=== PATIENT | female | born 1935 | race Caucasian/White ===

== ENCOUNTER 2016-07-13 08:23 | Inpatient (IN) | payer MEDICARE, BC ==
[~2016-07-13] VITALS: Ht 157.5 cm; Wt 80.0 kg
--- NOTE | 2016-07-15 10:33 | MH ---
cc: Laine PAIGE M.D. DATE OF ADMISSION 07/21/2016 ADMISSION DIAGNOSIS Osteoarthritic degeneration right knee now being admitted for right total knee arthroplasty HISTORY AND PHYSICAL This pleasant 81-year female is being admitted today for a right total knee arthroplasty due to severe painful osteoarthritic degeneration right knee. OTHER PAST HISTORY The patient has no medical problems, takes no medications. PAST SURGICAL HISTORY Include: 1. Tonsillectomy 2. Hysterectomy 3. A left total knee REVIEW OF SYSTEMS Noncontributory FAMILY HISTORY Noncontributory SOCIAL HISTORY She does not smoke or drink. ALLERGIES SHE HAS ALLERGIES TO SULFA, ZITHROMAX AND AVELOX. PHYSICAL EXAMINATION We find an 81-year female well-developed, well-nourished oriented x3 complaining of pain in her right knee. VITAL SIGNS: Blood pressure 128/84, pulse 62 and regular, respirations 18, temperature 97.4, pulse oximetry 96% on room air. HEENT: Eyes PERRL, EOMI. Ears, nose, mouth clear. NECK: Supple. LUNGS: Clear. HEART: Regular rate. ABDOMEN: Soft, positive bowel sounds, nontender. EXTREMITIES: The right knee has crepitance on range of motion. She lacks 10 degrees short of full extension, as general valgus deformity and is neurovascularly intact to her toes. IMPRESSION AT THIS TIME Severe painful osteoarthritic degeneration right knee with valgus deformity. PLAN Admission for right total knee arthroplasty today. The patient was given a prescription for postoperative pain, anticoagulation control in the office and plans on going home after a three-day stay in the hospital. She understands the use Hibiclens scrub and Bactroban preoperatively. JMD JOSTIN Shaw/MAGY /10:23 AM /10:27 AM
[2016-07-21] MEDS ORDERED: VANCOMYCIN HCL 1000 MG VIAL ONE (07:06)
[2016-07-21] MEDS ORDERED: SODIUM CHLOR 0.9% 250 ML INJ 250 ML ONE (07:06)
[2016-07-21 07:07] VITALS: BP 146/79; PULSE 72; RESP 18; TEMP 98.2; O2SAT 97
[2016-07-21] MEDS: BUPIVACAINE LIPOSO PF 1.3% INJ 20 ML, BUPIVACAINE PF 0.25% INJ 20 ML in SODIUM CHLORIDE... P-ARTICULR SCH ×2 (07:15→09:56)
[2016-07-21] MEDS: CHLORHEXIDINE GLUCONATE 4% SOLN 120 ML BTL TOP SCH (07:15)
[2016-07-21] MEDS ORDERED: ceFAZolin 2 GM PREMIX 50 ML IV SCH (07:15)
[2016-07-21] MEDS: TRANEXAMIC ACID IV SCH ×2 (07:15→08:25)
[2016-07-21] MEDS ORDERED: ROPIVACAINE PERI-ARTICULAR INJECTION. PERIART SCH ×5 (07:15)
[2016-07-21] MEDS ORDERED: VANCOMYCIN 1000 MG/NS 250 ML (for <70 kg) IV SCH ×2 (07:15)
[2016-07-21] MEDS: SODIUM CHLORIDE 0.9% IV SCH ×2 (07:15→08:25)
[2016-07-21] MEDS ORDERED: SODIUM CHLORID 0.9% 500 ML IV SCH (07:30)
[2016-07-21] MEDS ORDERED: METOPROLOL TARTRATE 25 MG TAB PO PRN (07:30)
[2016-07-21] MEDS ORDERED: INSULIN HUMAN REGULAR 1,000 UNITS/10 ML VIAL SQ PRN (07:30)
[2016-07-21] MEDS ORDERED: LACTATED RINGER'S 1000 ML IV SCH (07:30)
[2016-07-21] MEDS ORDERED: MIDAZOLAM HCL 2 MG/2 ML VIAL ONE (07:34)
[2016-07-21] MEDS ORDERED: ACETAMINOPHEN 325 MG TAB PO PRN (08:15)
[2016-07-21] MEDS ORDERED: NALOXONE HCL 0.4 MG/ML AMP IV PRN ×2 (08:15)
[2016-07-21] MEDS ORDERED: MORPHINE SULFATE 30 MG/30 ML PCA IV SCH (08:15)
[2016-07-21] MEDS ORDERED: Post-op Orders (for Pharmacy) MISC XX ONE (08:15)
[2016-07-21] MEDS ORDERED: SODIUM CHLORIDE 0.9% FLUSH 5 ML FLUSH IVF PRN (08:15)
--- NOTE | 2016-07-21 08:18 | HHI.FF ---
Face to Face Verification Diagnosis: (1) Status post total right knee replacement Physical Therapy Gait training Knee: Total knee, Protocol: Right, Full weight bearing Canvas Knee Splint: When in bed & 2 pillows btw thighs Nursing RN: 3 days/week x 2 weeks Nursing: True teaching, Dressing changes Dressing Changes: Daily dressing change, 4x4s, Gauze, Paper tape I have seen patient Pam Martinez on 07/21/16. My clinical findings support the need for the requested home health care services because: Limited ability to care for self High risk of falls I certify that my clinical findings support that this patient is homebound because: Unsteady gait/balance Laine Ferrell MD Jul 21, 2016 08:18
[2016-07-21] MEDS ORDERED: CPMMACHINE (08:20)
[2016-07-21] MEDS ORDERED: MISC-163 (08:20)
[2016-07-21] MEDS ORDERED: WALKER WHEELS/F1 MIS (08:20)
[2016-07-21] MEDS ORDERED: ceFAZolin INJ 1,000 MG VIAL XX ONE (08:49)
[2016-07-21] MEDS ORDERED: ONDANSETRON HCL 4 MG/2 ML VIAL IVP PRN (09:00)
[2016-07-21] MEDS ORDERED: diphenhydrAMINE HCL 50 MG/ML VIAL IV PRN (09:00)
[2016-07-21] MEDS ORDERED: TEMAZEPAM 15 MG CAP PO PRN (10:00)
[2016-07-21] MEDS ORDERED: fentaNYL CITRATE 250 MCG/5 ML AMP ONE (10:58)
[2016-07-21] MEDS ORDERED: TRANEXAMIC ACID IV SCH ×2 (11:00→12:00)
[2016-07-21] MEDS ORDERED: SODIUM CHLORIDE 0.9% IV SCH ×2 (11:00→12:00)
[2016-07-21] MEDS ORDERED: BUPIVACAINE HCL PF 0.5% 30 ML VIAL NB ONE (11:03)
[2016-07-21] MEDS ORDERED: *morphine SULFATE 8 MG/ML PERIprocedure ONLY ONE ×2 (11:11→11:17)
[2016-07-21] MEDS ORDERED: DO NOT ADM ANY ANTICOAGULANT DRUGS XX PRN (11:15)
[2016-07-21] MEDS: LACTATED RINGER'S 1000 ML INJ 1,000 ML IV SCH ×2 (11:51→21:04)
[2016-07-21] MEDS: SODIUM CHLORIDE 0.9% FLUSH 5 ML FLUSH IVF SCH ×2 (11:51→21:00)
--- NOTE | 2016-07-21 12:14 | RADRPT ---
EXAM DATE/TIME: 07/21/2016 10:47 [facility] COMPARISON: No previous studies available for comparison. INDICATIONS : Post op right knee surgery. MEDICAL HISTORY : Osteoarthritis. SURGICAL HISTORY : None. ENCOUNTER: Initial ACUITY: 1 day PAIN SCORE: 0/10 LOCATION: Right Knee. FINDINGS: The patient is status post right total knee replacement with prosthesis in good position. No fracture or dislocation is noted. CONCLUSION: Status post right total knee replacement with prosthesis in good position. Dario Champagne MD on July 21, 2016 at 12:12 Board Certified Radiologist. This report was verified electronically.
[2016-07-21] MEDS ORDERED: ONDANSETRON HCL 4 MG/2 ML VIAL IV PUSH ONE (13:07)
[2016-07-21] MEDS ORDERED: ePHEDrine/NS 25 MG/5 ML SYR IV ONE (13:07)
[2016-07-21] MEDS ORDERED: PROPOFOL 200 MG/20 ML AMP IV ONE (13:07)
[2016-07-21] MEDS ORDERED: LACTATED RINGER'S 1000 ML INJ 1,000 ML IV ONE (13:07)
[2016-07-21] MEDS ORDERED: NEOSTIGMINE 3 MG/3 ML SYR IV ONE (13:07)
[2016-07-21] MEDS: PCA - TOTAL MG MORPHINE DELIVERED PER SHIFT SCH ×2 (14:00→22:00)
[2016-07-21 16:03] VITALS: BP 127/62; PULSE 68; RESP 18; TEMP 95.5; O2SAT 97
[2016-07-21 19:30] VITALS: BP 140/65; PULSE 80; RESP 17; TEMP 95.9; O2SAT 95
[2016-07-21] MEDS: ACETAMINOPHEN/HYDROcodone 325 MG/7.5 MG TAB PO PRN (21:02)
[2016-07-22] VITALS: BP 121/62; PULSE 75; RESP 18; TEMP 97.7; O2SAT 94
[2016-07-22] MEDS: ACETAMINOPHEN/HYDROcodone 325 MG/7.5 MG TAB PO PRN ×6 (02:05→23:37)
[2016-07-22] MEDS: LACTATED RINGER'S 1000 ML INJ 1,000 ML IV SCH ×2 (03:13→21:39)
[2016-07-22 04:00] VITALS: BP 105/51; PULSE 76; RESP 18; TEMP 97.5; O2SAT 94
[2016-07-22] MEDS: PCA - TOTAL MG MORPHINE DELIVERED PER SHIFT SCH (06:00)
--- NOTE | 2016-07-22 06:19 | MP ---
cc: Laine FERRELL M.D. DATE OF SURGERY 07/21/2016 PREOPERATIVE DIAGNOSIS Osteoarthritic degeneration right knee. POSTOPERATIVE DIAGNOSIS Osteoarthritic degeneration right knee. SURGERY PERFORMED Right total knee arthroplasty using Consensus Knee System with the pre-made cutting jigs sizes - 3 femur, 0 tibia, size 1 patella and a size 12 insert. No cement utilized. SURGEON Laine Ferrell MD BENDING PRESS OPERATOR DAIJA Jin ANESTHESIA General intubation and block. PROCEDURE After successful induction of anesthesia, the patient is placed on the operating room table in the supine position. The knee is prepped and draped in the usual manner. A tourniquet is inflated at the upper thigh and set to 300 mmHg pressure after exsanguination of the lower extremity. A longitudinal incision is made extending from 3 inches proximal to the superior pole of the patella, across the patella in longitudinal fashion, and down past the insertion of the tibial tubercle into the proximal tibia. The incision is carried down through subcutaneous tissue along the medial aspect of the patella and retinaculum, down through the capsule to expose the knee joint. The patella and patellar tendon are freed up enough to allow the patella to be inverted and retracted off the lateral side of the knee joint. The knee joint is left exposed. Small osteophytes are removed. All soft tissue is removed to allow proper position of the femoral and tibial cutting jig guide. The first femoral jig is then inserted along the distal end of the femur after first measuring to decide whether this is a small, medium, or large component. The notch is then drilled and the tibial cutting guide inserted into the femoral cutting guide, along with the ankle brace to allow for proper measurement of the tibial cutting surface that needed to be resected. Pins are inserted into the tibial cutting jig and femoral cutting jig to hold them in place. An oscillating saw is then used to resect the surface of the tibia. The surface of the tibia is then completely removed using sharp and blunt dissection. The anterior and posterior cuts of the femur are then made as well using an oscillating saw through the cutting guide. All guides are then removed and the varus/valgus angulation cutting guide applied to the femur for proper measurement of the proper amount of valgus. The anterior cutting guide for the femur is then inserted at the anterior femoral cuts made. Next, the first block trial is inserted into the femur to allow for proper condyle drill holes to be made which are then made followed by removal of the bone between the condyles using an oscillating saw as well as the bone removed at the most posterior surface of the condyle. After this, this guide is removed and the chamfer cuts made using the chamfer cutting guide from both anterior and posterior. Next, the femoral trial is then inserted, the tibial surface reflected anterior to expose the tibial surface and a tibial stem guide is inserted after first measuring for a standard, standard plus, large, or large plus surface to be used. After the stem is impacted the trial tibial surface is applied followed by the trial meniscal components. After full range of motion is found with the appropriate length meniscal components varying the patella is prepared by resecting the posterior aspect of the patella using an oscillating saw, inserting a trial. The trial is then removed and the cruciate cutting guide applied using the bur to cut the cruciate cuts. After cruciate cuts are made all trials are removed. The wound is irrigated copiously with antibiotic solution and Water Pik and the actual components inserted into place using Consensus Knee System with the pre-made cutting jigs sizes - 3 femur, 0 tibia, size 1 patella and a size 12 insert. No cement utilized.. The components are found to have full range of motion with no instability, the tourniquet is deflated, total tourniquet time being 54 minutes at 300 mmHg pressure. Meticulous hemostasis achieved. 120 cc of Exparel with Marcaine injected around the knee joint for extra pain control. The deep fascia approximated with running #2 Quill, the subcutaneous tissue approximated using interrupted and running 2-0 and 3-0 Monocryl sutures, Steri-Strips, sterile dressing and knee immobilizer. No drain utilized. ESTIMATED BLOOD LOSS: 100 cc. COUNTS: Sponge and suture counts were correct. The patient tolerated the procedure well and left the Operating Room in satisfactory condition. J. MD JOSTIN Bianchi/VIVEK /10:24 AM /6:02 AM
[2016-07-22 07:03] LABS: HEMATOCRIT 33.2 % (35.0-46.0); REVIEW FLAG FINAL
[2016-07-22] MEDS: CHLORHEXIDINE GLUCONATE 4% SOLN 120 ML BTL TOP SCH (07:15)
[2016-07-22 08:00] VITALS: BP 106/57; PULSE 74; RESP 18; TEMP 95.5; O2SAT 95
[2016-07-22] MEDS: SODIUM CHLORIDE 0.9% FLUSH 5 ML FLUSH IVF SCH ×2 (08:37→20:46)
--- NOTE | 2016-07-22 10:01 | PD.ORT.PN ---
Subjective Subjective Remarks Patient comfortable today. No complaints of pain. She states she is hungry. Objective Vitals Vital Signs Date Time Temp Pulse Resp B/P Pulse Ox O2 Delivery O2 Flow Rate FiO2 07/22/16 08:00 95.5 74 18 106/57 95 07/22/16 06:00 18 07/22/16 04:00 97.5 76 18 105/51 94 07/22/16 00:00 97.7 75 18 121/62 94 07/21/16 22:01 21 07/21/16 22:00 18 07/21/16 19:30 95.9 80 17 140/65 95 07/21/16 16:03 95.5 68 18 127/62 97 07/21/16 15:00 97.4 65 16 131/69 98 Nasal Cannula 2 07/21/16 14:00 71 16 131/69 98 Nasal Cannula 2 07/21/16 13:00 64 15 121/64 98 Nasal Cannula 2 07/21/16 11:40 97.5 65 14 136/69 97 Nasal Cannula 2 07/21/16 11:30 66 13 149/72 96 Nasal Cannula 2 07/21/16 11:15 68 14 138/72 99 Nasal Cannula 2 07/21/16 11:00 82 14 157/70 99 Nasal Cannula 2 07/21/16 11:00 14 07/21/16 10:49 97.6 85 14 146/62 96 Nasal Cannula 2 I/O 07/21/16 07/21/16 07/21/16 07/22/16 07/22/16 07/22/16 07:00 15:00 23:00 07:00 15:00 23:00 Intake Total 1457 ml 240 ml 2784 ml Output Total 100 ml Balance 1357 ml 240 ml 2784 ml Intake Oral 0 ml 240 ml 220 ml IV Total 307 ml 2564 ml Other 1150 ml Output Urine Total 0 ml Estimated Blood Loss 100 ml # Voids 0 1 1 # Bowel Movements 0 0 Result Diagram: 07/22/16 0623 Objective Remarks Patient is currently lying in bed. The dressing is dry and intact. She is moving her toes well. Circulation is intact to her toes. She has negative Homans sign with tenderness. Assessment & Plan Ortho Post Op Day #: 1 Problem List: Assessment and Plan DC LOCKS TENDER today. Begin out of bed with physical therapy weight-bear to tolerance with a walker. Daily wound care. Laine Ferrell MD Jul 22, 2016 10:01
[2016-07-22] MEDS: ENOXAPARIN SODIUM 30 MG/0.3 ML SYRINGE SQ SCH ×2 (10:29→21:39)
[2016-07-22 12:00] VITALS: BP 116/55; PULSE 92; RESP 18; TEMP 97; O2SAT 93
[2016-07-22 16:20] VITALS: BP 131/64; PULSE 86; RESP 16; TEMP 95.6; O2SAT 95
[2016-07-22 19:30] VITALS: BP 117/51; PULSE 85; RESP 16; TEMP 96.7; O2SAT 95
[2016-07-22] MEDS: DOCUSATE SODIUM 100 MG CAP PO SCH (20:46)
[2016-07-22] MEDS: MULTIVITAMINS/MINERALS THERAPEUTIC TAB PO SCH (20:46)
[2016-07-23 00:09] VITALS: BP 118/54; PULSE 87; RESP 16; TEMP 97.4; O2SAT 95
[2016-07-23 04:00] VITALS: BP 118/64; PULSE 85; RESP 16; TEMP 97.8; O2SAT 96
[2016-07-23] MEDS: CHLORHEXIDINE GLUCONATE 4% SOLN 120 ML BTL TOP SCH (05:21)
[2016-07-23 06:53] LABS: HEMATOCRIT 32.1 % (35.0-46.0); REVIEW FLAG FINAL
[2016-07-23 08:00] VITALS: BP 118/62; PULSE 79; RESP 18; TEMP 97; O2SAT 96
[2016-07-23] MEDS: MULTIVITAMINS/MINERALS THERAPEUTIC TAB PO SCH ×2 (09:32→22:02)
[2016-07-23] MEDS: ENOXAPARIN SODIUM 30 MG/0.3 ML SYRINGE SQ SCH ×2 (09:32→22:02)
[2016-07-23] MEDS: SODIUM CHLORIDE 0.9% FLUSH 5 ML FLUSH IVF SCH ×2 (09:32→22:03)
[2016-07-23] MEDS: DOCUSATE SODIUM 100 MG CAP PO SCH ×2 (09:32→22:02)
[2016-07-23] MEDS: LACTATED RINGER'S 1000 ML INJ 1,000 ML IV SCH (09:33)
[2016-07-23] MEDS: ACETAMINOPHEN/HYDROcodone 325 MG/7.5 MG TAB PO PRN ×3 (09:34→22:02)
[2016-07-23] MEDS ORDERED: BACITRACIN OINT 0.9 GM PKT TOP PRN (10:15)
--- NOTE | 2016-07-23 10:37 | PD.ORT.PN ---
Subjective Subjective Remarks Patient comfortable today. No complaints of pain. Objective Vitals Vital Signs Date Time Temp Pulse Resp B/P Pulse Ox O2 Delivery O2 Flow Rate FiO2 07/23/16 08:00 97.0 79 18 118/62 96 07/23/16 04:00 97.8 85 16 118/64 96 07/23/16 00:35 20 07/23/16 00:09 97.4 87 16 118/54 95 07/22/16 21:04 21 07/22/16 19:30 96.7 85 16 117/51 95 07/22/16 19:30 96.7 85 16 117/51 95 07/22/16 16:20 95.6 86 16 131/64 95 07/22/16 12:00 97.0 92 18 116/55 93 I/O 07/22/16 07/22/16 07/22/16 07/23/16 07/23/16 07/23/16 07:00 15:00 23:00 07:00 15:00 23:00 Intake Total 2784 ml 600 ml 480 ml 480 ml Balance 2784 ml 600 ml 480 ml 480 ml Intake Oral 220 ml 600 ml 480 ml 480 ml IV Total 2564 ml 0 ml # Voids 1 3 2 1 # Bowel Movements 0 0 Result Diagram: 07/23/16 0455 Objective Remarks Patient is currently sitting up in chair having breakfast. The dressing is dry and intact. She is moving her toes well. Circulation is intact to her toes. She has negative Homans sign with no tenderness. Assessment & Plan Ortho Post Op Day #: 2 Problem List: Assessment and Plan Physical therapy weight-bear to tolerance with a walker. Daily wound care. Home tomorrow with [facility] and PT. Laine Ferrell MD Jul 23, 2016 10:37
--- NOTE | 2016-07-23 10:40 | HHI.DS ---
Discharge Summary Admission Date Jul 21, 2016 at 06:14 Discharge Date: Jul 24, 2016 Admitting Diagnosis Osteoarthritic degeneration right knee. Diagnosis: (1) Status post total right knee replacement Diagnosis: Principal Brief History This is a 81 year old female patient CBC/BMP: 07/23/16 0455 Significant Findings Laboratory Tests Test 07/22/16 07/23/16 06:23 04:55 Hemoglobin 10.9 GM/DL 10.6 GM/DL (11.6-15.3) (11.6-15.3) Hematocrit 33.2 % 32.1 % (35.0-46.0) (35.0-46.0) PE at Discharge Patient is currently sitting up in chair having breakfast. The dressing is dry and intact. She is moving her toes well. Circulation is intact to her toes. She has negative Homans sign with no tenderness. Hospital Course This patient was admitted on 07/21/16 with severe pain in her right knee from osteoarthritic degeneration. The patient underwent a right total knee arthroplasty on 07/21/16 at which time she received a course of prophylactic IV antibiotics and within 23 hours started on anticoagulation therapy. She began out of bed tolerating food and fluids well and physical therapy weight-bear to tolerance. She received daily wound care remained afebrile with vital signs stable. She continued to improve and was discharged on the third postoperative day in good condition with instructions for home healthcare and physical therapy. She was discharged on by mouth pain meds and continuation of anticoagulation therapy. Pt Condition on Discharge: Good Discharge Disposition: Disch w/ Home Health Serv Discharge Instructions Diet Instructions: As Tolerated, No Restrictions Activities You Can Perform: Full Weight Bearing, Shower Only-No Bath Activities to Avoid: Bathing, Driving Laine Ferrell MD Jul 23, 2016 10:40
[2016-07-23 12:00] VITALS: BP 119/58; PULSE 81; RESP 18; TEMP 95.4; O2SAT 96
[2016-07-23] MEDS: POLYETHYLENE GLYCOL 17 GM PKG PO PRN (15:34)
[2016-07-23] MEDS: MAGNESIUM HYDROXIDE SUSP 30 ML CUP PO PRN (15:34)
[2016-07-23 16:00] VITALS: BP 139/59; PULSE 79; RESP 18; TEMP 96.4; O2SAT 97
[2016-07-23 20:35] VITALS: BP 128/60; PULSE 85; RESP 17; TEMP 98.4; O2SAT 97
[2016-07-24 00:20] VITALS: BP 120/56; PULSE 80; RESP 16; TEMP 97.2; O2SAT 95
[2016-07-24] MEDS: ACETAMINOPHEN/HYDROcodone 325 MG/7.5 MG TAB PO PRN ×2 (05:54→09:51)
[2016-07-24] MEDS: MAGNESIUM HYDROXIDE SUSP 30 ML CUP PO PRN (05:54)
[2016-07-24] MEDS: POLYETHYLENE GLYCOL 17 GM PKG PO PRN (05:54)
[2016-07-24 08:00] VITALS: BP 118/60; PULSE 75; RESP 18; TEMP 95.5; O2SAT 94
[2016-07-24] MEDS: MULTIVITAMINS/MINERALS THERAPEUTIC TAB PO SCH (08:04)
[2016-07-24] MEDS: DOCUSATE SODIUM 100 MG CAP PO SCH (08:04)
[2016-07-24] MEDS: SODIUM CHLORIDE 0.9% FLUSH 5 ML FLUSH IVF SCH (08:04)
--- NOTE | 2016-07-24 09:01 | PD.ORT.PN ---
Subjective Subjective Remarks Patient comfortable today. No complaints of pain. Objective Vitals Vital Signs Date Time Temp Pulse Resp B/P Pulse Ox O2 Delivery O2 Flow Rate FiO2 07/24/16 08:00 95.5 75 18 118/60 94 07/24/16 00:20 97.2 80 16 120/56 95 07/23/16 20:35 98.4 85 17 128/60 97 07/23/16 16:00 96.4 79 18 139/59 97 07/23/16 12:00 95.4 81 18 119/58 96 I/O 07/23/16 07/23/16 07/23/16 07/24/16 07/24/16 07/24/16 07:00 15:00 23:00 07:00 15:00 23:00 Intake Total 480 ml 960 ml 240 ml Balance 480 ml 960 ml 240 ml Intake Oral 480 ml 960 ml 240 ml IV Total 0 ml # Voids 1 4 2 # Bowel Movements 0 0 Result Diagram: 07/23/16 0455 Objective Remarks Patient is currently in bed. The dressing is dry and intact. She is moving her toes well. Circulation is intact to her toes. She has negative Homans sign with no tenderness. Assessment & Plan Ortho Post Op Day #: 3 Problem List: (1) Status post total right knee replacement Assessment and Plan Physical therapy weight-bear to tolerance with a walker. Daily wound care. Home today with [facility] and PT. Laine Ferrell MD Jul 24, 2016 09:01
[2016-07-24] MEDS: ENOXAPARIN SODIUM 30 MG/0.3 ML SYRINGE SQ SCH (09:51)
== END 2016-07-24 11:45 | disposition home health service (06) | DRG 470 ==
LOC: HSDI 07-21 06:14 → N06B 07-21 16:02
PROVIDERS: ADMIT Surgery; ATTEND Surgery
PROC: 3E0T3CZ (ICD-10-PCS; 2016-07-21)
PROC: 0SRC0JA Replacement of Right Knee Joint with Synthetic Substitute, Uncemented, Open Approach (ICD-10-PCS; principal; 2016-07-21 08:03)
DX: M17.11 Unilateral primary osteoarthritis, right knee (principal); K59.00 Constipation, unspecified; M21.061 Valgus deformity, not elsewhere classified, right knee; Z88.1 Allergy status to other antibiotic agents; Z88.2 Allergy status to sulfonamides
CPT/HCPCS: 73560; 85014; 85018; 86850; 86900; 86901; 94150; C1776; C9290; J0690; J1650; J2250; J2270; J2405; J2710; J3010; J3370; J7050; J7120; L1830

== ENCOUNTER → 2016-07-13 | Outpatient (CLI) | payer MEDICARE, BC ==
[~2016-07-13] MED LIST: CPMMACHINE; HYDR-2376 PO; MISC-163; PERI8.6T PO; WALKER WHEELS/F1 MIS
[2016-07-13 09:11] LABS: HEMATOCRIT 40.2 % (35.0-46.0); MEAN CELL VOLUME 82.5 FL (80.0-100.0); MEAN CORPUSCULAR HEMOGLOBIN 27.5 PG (27.0-34.0); MEAN CORPUSCULAR HGB CONC 33.3 % (32.0-36.0); PLATELET COUNT 316 TH/MM3 (150-450); RED BLOOD COUNT 4.87 MIL/MM3 (4.00-5.30); RED CELL DISTRIBUTION WIDTH 15.8 % (11.6-17.2); REVIEW FLAG FINAL; WHITE BLOOD COUNT 6.9 TH/MM3 (4.0-11.0)
[2016-07-13 09:19] LABS: BLOOD, URINE NEG (NEG); COMMENT (UR) CATH-CULT NOT IND; CULTURE IF INDICATED CATH CULTURE NOT IND; GLUCOSE,URINE NEG (NEG); KETONE, URINE NEG (NEG); MUCUS URINE FEW /lpf (OCC); NITRITE,URINE NEG (NEG); PH, URINE 5.5 (5.0-8.5); URINE COLOR YELLOW (YELLW/STRAW)
[2016-07-13 09:28] LABS: PROTHROMBIN TIME - PATIENT 10.7 SEC (9.8-11.6)
[2016-07-13 09:38] LABS: ALKALINE PHOSPHATASE 75 U/L (45-117); ALT (GPT) 15 U/L (10-53); ANION GAP 7 MEQ/L (5-15); AST (GOT) 20 U/L (15-37); BICARBONATE 28.8 MEQ/L (21.0-32.0); BLOOD UREA NITROGEN 14 MG/DL (7-18); CHLORIDE 106 MEQ/L (98-107); GLOMERULAR FILTRATION RATE 62 ML/MIN (>89); GLUCOSE,FASTING 98 MG/DL (74-99); POTASSIUM 4.1 MEQ/L (3.5-5.1); SODIUM (NA) 142 MEQ/L (136-145); TOTAL BILIRUBIN ADULT 0.6 MG/DL (0.2-1.0)
--- NOTE | 2016-07-13 13:49 | EKG ---
Date Performed: 07/13/2016 Time Performed: 08:52:10 PTAGE: 81 years EKG: Sinus rhythm LOW QRS VOLTAGE IN PRECORDIAL LEADS BORDERLINE ECG Compared to prior tracing no significant change PREVIOUS TRACING : 02/12/2011 09.26 DOCTOR: Tina Duffy Interpretating Date/Time 07/13/2016 13:47:11
== END ==
LOC: CPRE 08:01
PROVIDERS: ATTEND Surgery
DX: Z01.812 Encounter for preprocedural laboratory examination (principal); Z01.810 Encounter for preprocedural cardiovascular examination; R94.31 Abnormal electrocardiogram [ECG] [EKG]
CPT/HCPCS: 36415; 80053; 81001; 85027; 85610; 85730; 93005

== ENCOUNTER 2016-09-20 03:42 | Inpatient (IN) | payer MEDICARE, BC ==
[~2016-09-20] VITALS: Ht 157.5 cm; Wt 69.3 kg
[~2016-09-20 03:42] MED LIST changes: -HYDR-2376 PO; -PERI8.6T PO
[2016-09-20 03:43] VITALS: BP 181/79; PULSE 72; RESP 16; TEMP 97.9; O2SAT 99
--- NOTE | 2016-09-20 04:31 | PD ---
HPI Chief Complaint: Abdominal Pain Time Seen by Provider: 04:04 Travel History International Travel<30 days: No Contact w/Intl Traveler<30days: No Traveled to known affect area: No History of Present Illness HPI The patient is an 81 year old female who presents to the [facility] emergency department with a history of intermittent abdominal pain that began 2 nights ago. The patient reports that the pain has only been occurring in the evening. She reports that it is in the midepigastric area and sharp in character and radiates straight through to her back. She reports having associated nausea but no vomiting. She denies having any diarrhea. She last moved her bowels earlier today. She denies having any blood in her stool or black or tarry stools. The patient reports that she became concerned this evening when the pain became constant since 8 PM. The patient reports that she has had problems with gallbladder attacks in the past, however none recently. She did have a 10 pound weight loss recently since July when she had a right total knee replacement and was having difficulty tolerating the oral pain medicine. The patient reports having history of acid reflux, however it has not been any worse recently. She reports that she takes Prilosec or Tums when necessary for this. The patient denies any recent fevers, cough, congestion, neck pain, chest pain, shortness of breath, urinary symptoms, or neurologic symptoms. [facility] Past Medical History Narrative Medical The patient's past medical history is significant for acid reflux, prior history of "gallbladder attacks", arthritis, acid reflux. Arthritis: Yes Cancer: No Cardiovascular Problems: No Diabetes: No Diminished Hearing: No Endocrine: No Gastrointestinal Disorders: Yes (REFLUX) GERD: Yes Genitourinary: No Hepatitis: No Hiatal Hernia: Yes Immune Disorder: No Musculoskeletal: Yes (OA) Neurologic: No Psychiatric: No Reproductive: No Respiratory: Yes (seasonal allergies) Thyroid Disease: No Past Surgical History Narrative Surgical The patient's past surgical history is significant for a tonsillectomy, hysterectomy, bilateral knee replacement. Abdominal Surgery: No AICD: No Cardiac Surgery: No Ear Surgery: No Endocrine Surgery: No Eye Surgery: Yes (DORON CATARACT) Genitourinary Surgery: No Gynecologic Surgery: Yes (hysterectomy) Hysterectomy: Yes Joint Replacement: Yes Oral Surgery: Yes (T&A) Pacemaker: No Thoracic Surgery: No Tonsillectomy: Yes (T&A) Other Surgery: Yes Social History Alcohol Use: No Tobacco Use: No Substance Use: No Allergies-Medications (Allergen,Severity, Reaction): Coded Allergies: Hydrocodone (Verified Allergy, Severe, GI UPSET, 09/20/16) Morphine (Verified Allergy, Severe, vomitting, 09/20/16) Avelox (Unverified Allergy, Intermediate, 07/21/16) Zithromax (Unverified Allergy, Intermediate, 07/21/16) Sulfa (Verified Allergy, Mild, 07/21/16) hives itchin swelling Reported Meds & Prescriptions Reported Meds & Active Scripts Active 3-in-1 Bedside Toilet (Device) 1 Mis Mis 1 Ea .ROUTE DIRECTED Walker with Front Wheels (Device) 1 Mis Mis 1 Ea .ROUTE DIRECTED CPM-Continuous Passive Motion Machine 1 Ea Device 1 Ea .ROUTE DIRECTED Review of Systems Except as stated in HPI: all other systems reviewed are Neg General / Constitutional: No: Fever Eyes: No: Visual changes HENT: No: Headaches Cardiovascular: No: Chest Pain or Discomfort Respiratory: No: Shortness of Breath Gastrointestinal: Positive: Nausea, Abdominal Pain, No: Vomiting, Diarrhea, Hematemesis, Hematochezia, Changes in Bowel Habits, Indigestion, Loss of Appetite Genitourinary: No: Dysuria Musculoskeletal: No: Pain Skin: No Rash Neurologic: No: Weakness Psychiatric: No: Depression Endocrine: No: Polydipsia Hematologic/Lymphatic: No: Easy Bruising Physical Exam Narrative General: The patient is a well-developed well-nourished female in no acute distress. Head and Neck exam: Head is normocephalic atraumatic. Eyes: EOMI, pupils are equal round and reactive to light. Nose: Midline septum with pink mucous membranes Mouth: Dentition unremarkable. Moist mucus membranes. Posterior oropharynx is not erythematous. No tonsillar hypertrophy. Uvula midline. Airway patent. Neck: No palpable lymphadenopathy. No nuchal rigidity. No thyromegaly. Cardiovascular: Regular rate and rhythm without murmurs, gallops, or rubs. Lungs: Clear to auscultation bilaterally. No wheezes, rhonchi, or rales. Abdomen: Soft, with tenderness on palpation of the right upper quadrant of the abdomen with a positive Gregg sign, no other tenderness on palpation of the other 3 quadrants. No guarding, rebound, or rigidity. Normal bowel sounds are audible. No tenderness on palpation of McBurney's point. Extremities: No clubbing, cyanosis, or edema. No calf tenderness on palpation. 2+ pulses in all 4 extremities. Back: No costovertebral angle tenderness to palpation. Neurologic Exam: Grossly nonfocal. Skin Exam: No rash noted. Intact skin that is warm and dry. Data Data Last Documented VS Vital Signs Date Time Temp Pulse Resp B/P Pulse Ox O2 Delivery O2 Flow Rate FiO2 09/20/16 07:00 67 19 140/63 100 Room Air 09/20/16 03:43 97.9 Orders Electrocardiogram (09/20/16 04:15) Complete Blood Count With Diff (09/20/16 04:15) Comprehensive Metabolic Panel (09/20/16 04:15) Creatine Kinase (Cpk) (09/20/16 04:15) Ckmb (Isoenzyme) Profile (09/20/16 04:15) Troponin I (09/20/16 04:15) B-Type Natriuretic Peptide (09/20/16 04:15) Prothrombin Time / Inr (Pt) (09/20/16 04:15) Act Partial Throm Time (Ptt) (09/20/16 04:15) Lipase (09/20/16 04:15) Urinalysis - C+S If Indicated (09/20/16 04:15) Magnesium (Mg) (09/20/16 04:15) Chest, Single Ap (09/20/16 04:15) Ct Abd/Pel W Iv Contrast(Rout) (09/20/16 04:15) Iv Access Insert/Monitor (09/20/16 04:15) Ecg Monitoring (09/20/16 04:15) Oximetry (09/20/16 04:15) Lactic Acid (09/20/16 04:15) Iohexol 350 Inj (Omnipaque 350 Inj) (09/20/16 05:23) Hydromorphone Pf Inj (Dilaudid Pf Inj) (09/20/16 05:30) Ondansetron Inj (Zofran Inj) (09/20/16 05:30) Sodium Chlorid 0.9% 500 Ml Inj (Ns 500 M (09/20/16 05:30) Piperacil-Tazo 3.375 Gm Premix (Zosyn 3. (09/20/16 06:30) Admit Order (Ed Use Only) (09/20/16 07:21) Us Abdomen Gallbladder (09/20/16 07:21) Labs Laboratory Tests Test 09/20/16 09/20/16 04:20 07:00 White Blood Count 8.9 TH/MM3 Red Blood Count 4.67 MIL/MM3 Hemoglobin 12.8 GM/DL Hematocrit 37.9 % Mean Corpuscular Volume 81.2 FL Mean Corpuscular Hemoglobin 27.5 PG Mean Corpuscular Hemoglobin 33.8 % Concent Red Cell Distribution Width 16.1 % Platelet Count 338 TH/MM3 Mean Platelet Volume 7.6 FL Neutrophils (%) (Auto) 72.6 % Lymphocytes (%) (Auto) 18.0 % Monocytes (%) (Auto) 6.6 % Eosinophils (%) (Auto) 2.1 % Basophils (%) (Auto) 0.7 % Neutrophils # (Auto) 6.4 TH/MM3 Lymphocytes # (Auto) 1.6 TH/MM3 Monocytes # (Auto) 0.6 TH/MM3 Eosinophils # (Auto) 0.2 TH/MM3 Basophils # (Auto) 0.1 TH/MM3 CBC Comment DIFF FINAL Differential Comment Prothrombin Time 10.7 SEC Prothromb Time International 1.0 RATIO Ratio Activated Partial 24.5 SEC Thromboplast Time Sodium Level 141 MEQ/L Potassium Level 4.3 MEQ/L Chloride Level 106 MEQ/L Carbon Dioxide Level 25.3 MEQ/L Anion Gap 10 MEQ/L Blood Urea Nitrogen 19 MG/DL Creatinine 0.85 MG/DL Estimat Glomerular Filtration 64 ML/MIN Rate Random Glucose 134 MG/DL Lactic Acid Level 1.3 mmol/L Calcium Level 9.1 MG/DL Magnesium Level 2.1 MG/DL Total Bilirubin 0.5 MG/DL Aspartate Amino Transf 27 U/L (AST/SGOT) Alanine Aminotransferase 16 U/L (ALT/SGPT) Alkaline Phosphatase 82 U/L Total Creatine Kinase 94 U/L Troponin I LESS THAN 0.02 NG/ML B-Type Natriuretic Peptide 17 PG/ML Total Protein 8.2 GM/DL Albumin 3.5 GM/DL Lipase 123 U/L Urine Color COLORLESS Urine Turbidity CLEAR Urine pH 7.5 Urine Specific [place] 1.031 Urine Protein NEG mg/dL Urine Glucose (UA) NEG mg/dL Urine Ketones NEG mg/dL Urine Occult Blood NEG Urine Nitrite NEG Urine Bilirubin NEG Urine Urobilinogen LESS THAN 2.0 MG/DL Urine Leukocyte Esterase NEG Urine RBC LESS THAN 1 /hpf Urine Squamous Epithelial <1 /hpf Cells Microscopic Urinalysis Comment CULT NOT INDICATED MDM Medical Decision Making Medical Screen Exam Complete: Yes Emergency Medical Condition: Yes Medical Record Reviewed: Yes Interpretation(s) Last Impressions Gall Bladder Ultrasound 09/20/16 0721 Signed Impressions: Service Date/Time: Tuesday, September 20, 2016 08:03 - CONCLUSION: Gallbladder appearance consistent with cholecystitis Alonso Danielle MD Chest X-Ray 09/20/16414 Signed Impressions: Service Date/Time: Tuesday, September 20, 2016 04:33 - CONCLUSION: 1. Cardiomegaly. 2. Retrocardiac density likely hiatal hernia. 3. Small bilateral hilar adenopathy. Consideration for CT chest may be warranted. 4. Hyperinflation without infiltrate. Ho Wei MD Abdomen/Pelvis CT 09/20/16414 Signed Impressions: Service Date/Time: Tuesday, September 20, 2016 05:20 - CONCLUSION: 1. Small to moderate-sized hiatal hernia. 2. Cholelithiasis. 3. Status post hysterectomy. 4. No acute inflammatory process. Ho Wei MD Differential Diagnosis Acute cholecystitis, versus biliary colic, versus acute pancreatitis, versus peptic ulcer disease, versus acid reflux, versus gastritis, versus colitis Narrative Course During the course of the patients emergency department visit, the patients history, examination, and differential diagnosis were reviewed with the patient. The patient had IV access obtained and blood work sent for analysis. The patient was placed on a professor of psychiatry with oximetry and blood pressure monitoring. The patient had an EKG done on arrival. The patient's EKG reveals a sinus rhythm heart rate of 69, no acute ST segment elevation or depression, T waves are inverted in lead 3, V1. A CT scan of the abdomen and pelvis was ordered, chest x-ray was ordered. The patient was provided normal saline a 500 mL bolus 1, hydromorphone 0.2 mg IV was given 1, Zofran 4 mg IV for nausea. The patients laboratory studies were reviewed and remarkable for a white count of 8.9, hemoglobin 12.8, platelets 338 with 72.6 neutrophils, CMP is remarkable for BUN of 19, glucose 134, CPK 94, troponin I less than 0.02, BNP 17, lipase 123, PT PTT within normal limits, urinalysis unremarkable Radiology studies were reviewed and remarkable for a CT scan of the abdomen and pelvis that shows evidence of gallstones, however no acute gallbladder inflammation. The patient was reexamined by me after pain medication was administered. The patient reports the pain has improved, however on repeat abdominal exam the patient continues to have right upper quadrant tenderness to palpation and a positive Gregg sign. The patient will be admitted to the hospital for intractable abdominal pain, rule out acute cholecystitis. The patient was given Zosyn 3.375 g IV. The patients results were discussed with the patient, including the plan of care. I explained that further testing and/ or monitoring is indicated based on the patients history, examination, and/ or laboratory findings. Therefore, I recommended admission for additional evaluation. The patient expressed understanding and was agreeable with this plan. The patient was admitted to the hospital in stable condition and [facility] Physician Communication Physician Communication The patient's case was discussed with Dr. Funez who did agree to admit the patient for further evaluation and treatment at this time. Diagnosis Primary Impression: Abdominal pain Qualified Code: R10.11 - Right upper quadrant abdominal pain Additional Impression: Gallstones Admitting Information Admitting Physician Requests: Observation Scripts Sennosides-Docusate Sodium ([place]ace)8.6-50 Mg Tab1 Tab PO BID PRN ( Constipation) #20 TAB Ref 0 Prov:Ho Funez MD 09/21/16 Hydrocodone-Acetaminophen 7.5-300 Mg Tab1 Tab PO Q6H PRN (PAIN) #20 TAB Ref 0 Prov:Ho Funez MD 09/21/16 Gissel Ortiz MD Sep 20, 2016 04:31
[2016-09-20 04:37] LABS: AUTOMATED NEUTROPHIL # 6.4 TH/MM3 (1.8-7.7); BASOPHIL # 0.1 TH/MM3 (0-0.2); BASOPHIL % 0.7 % (0.0-2.0); EOSINOPHIL # 0.2 TH/MM3 (0-0.4); EOSINOPHIL % 2.1 % (0.0-4.0); HEMATOCRIT 37.9 % (35.0-46.0); HEMO FLAGS DIFF FINAL; LYMPHOCYTE # 1.6 TH/MM3 (1.0-4.8); MEAN CELL VOLUME 81.2 FL (80.0-100.0); MEAN CORPUSCULAR HEMOGLOBIN 27.5 PG (27.0-34.0); MEAN CORPUSCULAR HGB CONC 33.8 % (32.0-36.0); MONO % 6.6 % (0.0-8.0); NEUT % 72.6 % (16.0-70.0); PLATELET COUNT 338 TH/MM3 (150-450); RED BLOOD COUNT 4.67 MIL/MM3 (4.00-5.30); RED CELL DISTRIBUTION WIDTH 16.1 % (11.6-17.2); WHITE BLOOD COUNT 8.9 TH/MM3 (4.0-11.0)
[2016-09-20 04:41] LABS: APTT (PATIENT) 24.5 SEC (24.3-30.1); PROTHROMBIN TIME - PATIENT 10.7 SEC (9.8-11.6)
[2016-09-20 05:04] LABS: ALKALINE PHOSPHATASE 82 U/L (45-117); ALT (GPT) 16 U/L (10-53); ANION GAP 10 MEQ/L (5-15); AST (GOT) 27 U/L (15-37); BICARBONATE 25.3 MEQ/L (21.0-32.0); BLOOD UREA NITROGEN 19 MG/DL (7-18); CHLORIDE 106 MEQ/L (98-107); GLOMERULAR FILTRATION RATE 64 ML/MIN (>89); MAGNESIUM 2.1 MG/DL (1.5-2.5); SODIUM (NA) 141 MEQ/L (136-145); TOTAL BILIRUBIN ADULT 0.5 MG/DL (0.2-1.0)
[2016-09-20 05:05] LABS: CREATINE KINASE 94 U/L (26-192); POTASSIUM 4.3 MEQ/L (3.5-5.1)
[2016-09-20] MEDS ORDERED: IOHEXOL 350 MG/ML 10 ML VIAL (for RAD DIAG) IV ONE (05:23)
--- NOTE | 2016-09-20 05:28 | RADRPT ---
EXAM DATE/TIME: 09/20/2016 04:33 [facility] COMPARISON: No previous studies available for comparison. INDICATIONS : Chest pain. MEDICAL HISTORY : Gastroesophageal reflux disease. Arthritis. SURGICAL HISTORY : None. ENCOUNTER: Initial ACUITY: 3 days PAIN SCORE: 9/10 LOCATION: chest epigastric. FINDINGS: A single view of the chest demonstrates the lungs to be hyperaerated without evidence of mass, infilt rate or effusion. Heart mildly enlarged. Retrocardiac density seen. There does appear to be some smal l hilar adenopathy bilaterally. Osseous structures are intact. CONCLUSION: 1. Cardiomegaly. 2. Retrocardiac density likely hiatal hernia. 3. Small bilateral hilar adenopathy. Consideration for CT chest may be warranted. 4. Hyperinflation without infiltrate. Ho Wei MD on September 20, 2016 at 5:24 Board Certified Radiologist. This report was verified electronically.
[2016-09-20] MEDS ORDERED: ONDANSETRON HCL 4 MG/2 ML VIAL IV PUSH ONE ×2 (05:30→12:00)
[2016-09-20] MEDS ORDERED: SODIUM CHLORID 0.9% 500 ML INJ 500 ML IV ONE (05:30)
[2016-09-20] MEDS ORDERED: HYDROmorphone HCL PF 1 MG/ML VIAL IV PUSH ONE (05:30)
[2016-09-20 05:45] VITALS: BP 167/72; PULSE 68; RESP 16; O2SAT 97
--- NOTE | 2016-09-20 05:52 | RADRPT ---
EXAM DATE/TIME: 09/20/2016 05:20 [facility] COMPARISON: No previous studies available for comparison. INDICATIONS : Epigastric abdominal pain x2 days with nausea. IV CONTRAST: 70 cc Omnipaque 350 (iohexol) IV ORAL CONTRAST: No oral contrast ingested. RADIATION DOSE: 6.89 CTDIvol (mGy) MEDICAL HISTORY : Gastroesophageal reflux disease. Hernia, hiatal. SURGICAL HISTORY : Hysterectomy. ENCOUNTER: Initial ACUITY: 2 days PAIN SCALE: 6/10 LOCATION: upper quadrant TECHNIQUE: Volumetric scanning of the abdomen and pelvis was performed. Using automated exposure control and ad justment of the mA and/or kV according to patient size, radiation dose was kept as low as reasonably achievable to obtain optimal diagnostic quality images. FINDINGS: LOWER LUNGS: The visualized lower lungs are clear. LIVER: Homogeneous density without lesion. There is no dilation of the biliary tree. Large gallstone and so me smaller ones towards the fundus. SPLEEN: Normal size without lesion. PANCREAS: Within normal limits. KIDNEYS: Normal in size and shape. There is no mass, stone or hydronephrosis. ADRENAL GLANDS: Within normal limits. VASCULAR: There is no aortic aneurysm. BOWEL/MESENTERY: Small moderate size hiatal hernia. The stomach, small bowel, and colon demonstrate no acute abnormali ty. There is no free intraperitoneal air or fluid. ABDOMINAL WALL: Within normal limits. RETROPERITONEUM: There is no lymphadenopathy. BLADDER: No wall thickening or mass. REPRODUCTIVE: Status post hysterectomy. INGUINAL: There is no lymphadenopathy or hernia. MUSCULOSKELETAL: Degenerative changes and scoliosis. CONCLUSION: 1. Small to moderate-sized hiatal hernia. 2. Cholelithiasis. 3. Status post hysterectomy. 4. No acute inflammatory process. Ho Wei MD on September 20, 2016 at 5:46 Board Certified Radiologist. This report was verified electronically.
[2016-09-20] MEDS ORDERED: PIPERACIL-TAZO 3.375 GM PREMIX 50 ML IV ONE (06:30)
[2016-09-20 07:00] VITALS: BP 140/63; PULSE 67; RESP 19; O2SAT 100
[2016-09-20 07:30] LABS: BLOOD, URINE NEG (NEG); COMMENT (UR) CULT NOT INDICATED; CULTURE IF INDICATED CULT NOT INDICATED; GLUCOSE,URINE NEG (NEG); KETONE, URINE NEG (NEG); NITRITE,URINE NEG (NEG); PH, URINE 7.5 (5.0-8.5); SQUAMOUS EPITHELIAL CELL URINE <1 /hpf (0-5); URINE COLOR COLORLESS (YELLW/STRAW)
[2016-09-20] MEDS ORDERED: NALOXONE HCL 0.4 MG/ML AMP IV PRN (08:15)
[2016-09-20] MEDS ORDERED: ACETAMINOPHEN 325 MG TAB PO PRN ×2 (08:15)
[2016-09-20] MEDS ORDERED: SODIUM CHLORIDE 0.9% FLUSH 10 ML FLUSH IV FLUSH PRN ×2 (08:15→10:15)
[2016-09-20] MEDS ORDERED: KETOROLAC TROMETHAMINE 30 MG/ML (IVP) VIAL IVP PRN (08:15)
[2016-09-20] MEDS ORDERED: ONDANSETRON HCL 4 MG/2 ML VIAL IVP PRN (08:15)
--- NOTE | 2016-09-20 08:46 | HHI.HP ---
[facility] Delmis La MD Admission Diagnosis Intractable abdominal pain, R/o Acute cholecystitis Diagnoses: (1) Gallstones (2) IFG (impaired fasting glucose) (3) Intractable abdominal pain Chief Complaint: Intractable abdominal pain Travel History International Travel<30 Days: No Contact w/Intl Traveler <30 Da: No Traveled to Known Affected Are: No History of Present Illness 81-year-old female with a history of GERD presented to the ED for evaluation of worsening midepigastric pain 3 days me described as sharp in character with radiation to her back associated with nausea without any emesis and rated 9 out of 10 in intensity. Patient denies any bladder or bowel dysfunctions. She reports prior history of "gallbladder attacks". CT abdomen in ED with finding of cholelithiasis however patient has no febrile episode or WBC. He denies any GI bleeding, hematuria, hemoptysis. She does not report any shortness of breath. Review of Systems Other 12 systems reviewed and are negative except for the one mentioned in history of present illness Past Family Social History Past Medical History Acid reflux Past Surgical History Eye Surgery: Yes (DORON CATARACT) Gynecologic Surgery: Yes (hysterectomy) Hysterectomy: Yes Joint Replacement: Yes Oral Surgery: Yes (T&A) Tonsillectomy: Yes (T&A) Other Surgery: Yes Allergies: Coded Allergies: Hydrocodone (Verified Allergy, Severe, GI UPSET, 09/20/16) Morphine (Verified Allergy, Severe, vomitting, 09/20/16) Avelox (Unverified Allergy, Intermediate, 07/21/16) Zithromax (Unverified Allergy, Intermediate, 07/21/16) Sulfa (Verified Allergy, Mild, 07/21/16) hives itchin swelling Family History Mother had diabetes type 2 Social History Alcohol Use: No Tobacco Use: No Substance Use: No Physical Exam Vital Signs Vital Signs Date Time Temp Pulse Resp B/P Pulse Ox O2 Delivery O2 Flow Rate FiO2 09/20/16 07:00 67 19 140/63 100 Room Air 09/20/16 05:57 14 09/20/16 05:45 68 16 167/72 97 Room Air 09/20/16 03:43 97.9 72 16 181/79 99 Room Air Physical Exam GENERAL: This is a well-nourished, well-developed patient, in no apparent distress. SKIN: No rashes, ecchymoses or lesions. Cool and dry. HEAD: Atraumatic. Normocephalic. No temporal or scalp tenderness. EYES: Pupils equal round and reactive. Extraocular motions intact. No scleral icterus. No injection or drainage. ENT: Nose without bleeding, purulent drainage or septal hematoma. Throat without erythema, tonsillar hypertrophy or exudate. Uvula midline. Airway patent. NECK: Trachea midline. No JVD or lymphadenopathy. Supple, nontender, no meningeal signs. CARDIOVASCULAR: Regular rate and rhythm without murmurs, gallops, or rubs. RESPIRATORY: Clear to auscultation. Breath sounds equal bilaterally. No wheezes , rales, or rhonchi. GASTROINTESTINAL: Abdomen soft, non-tender, nondistended. No hepato-splenomegaly , or palpable masses. Positive Gregg sign MUSCULOSKELETAL: Extremities without clubbing, cyanosis, or edema. No joint tenderness, effusion, or edema noted. No calf tenderness. Negative Homans sign bilaterally. NEUROLOGICAL: Awake and alert. Cranial nerves II through XII intact. Motor and sensory grossly within normal limits. Five out of 5 muscle strength in all muscle groups. Normal speech. Laboratory Laboratory Tests Test 09/20/16 09/20/16 04:20 07:00 White Blood Count 8.9 Red Blood Count 4.67 Hemoglobin 12.8 Hematocrit 37.9 Mean Corpuscular Volume 81.2 Mean Corpuscular Hemoglobin 27.5 Mean Corpuscular Hemoglobin 33.8 Concent Red Cell Distribution Width 16.1 Platelet Count 338 Mean Platelet Volume 7.6 Neutrophils (%) (Auto) 72.6 Lymphocytes (%) (Auto) 18.0 Monocytes (%) (Auto) 6.6 Eosinophils (%) (Auto) 2.1 Basophils (%) (Auto) 0.7 Neutrophils # (Auto) 6.4 Lymphocytes # (Auto) 1.6 Monocytes # (Auto) 0.6 Eosinophils # (Auto) 0.2 Basophils # (Auto) 0.1 CBC Comment DIFF FINAL Differential Comment Prothrombin Time 10.7 Prothromb Time International 1.0 Ratio Activated Partial 24.5 Thromboplast Time Sodium Level 141 Potassium Level 4.3 Chloride Level 106 Carbon Dioxide Level 25.3 Anion Gap 10 Blood Urea Nitrogen 19 Creatinine 0.85 Estimat Glomerular Filtration 64 Rate Random Glucose 134 Lactic Acid Level 1.3 Calcium Level 9.1 Magnesium Level 2.1 Total Bilirubin 0.5 Aspartate Amino Transf 27 (AST/SGOT) Alanine Aminotransferase 16 (ALT/SGPT) Alkaline Phosphatase 82 Total Creatine Kinase 94 Troponin I LESS THAN 0.02 B-Type Natriuretic Peptide 17 Total Protein 8.2 Albumin 3.5 Lipase 123 Urine Color COLORLESS Urine Turbidity CLEAR Urine pH 7.5 Urine Specific [place] 1.031 Urine Protein NEG Urine Glucose (UA) NEG Urine Ketones NEG Urine Occult Blood NEG Urine Nitrite NEG Urine Bilirubin NEG Urine Urobilinogen LESS THAN 2.0 Urine Leukocyte Esterase NEG Urine RBC LESS THAN 1 Urine Squamous Epithelial <1 Cells Microscopic Urinalysis Comment CULT NOT INDICATED Result Diagram: 09/20/1641909/20/16419 Imaging Last Impressions Chest X-Ray 09/20/16414 Signed Impressions: Service Date/Time: Tuesday, September 20, 2016 04:33 - CONCLUSION: 1. Cardiomegaly. 2. Retrocardiac density likely hiatal hernia. 3. Small bilateral hilar adenopathy. Consideration for CT chest may be warranted. 4. Hyperinflation without infiltrate. Ho Wei MD Abdomen/Pelvis CT 09/20/16414 Signed Impressions: Service Date/Time: Tuesday, September 20, 2016 05:20 - CONCLUSION: 1. Small to moderate-sized hiatal hernia. 2. Cholelithiasis. 3. Status post hysterectomy. 4. No acute inflammatory process. Ho Wei MD Assessment and Plan Problem List: (1) Intractable abdominal pain ICD Code: R10.9 Status: Acute (2) Cholelithiasis ICD Code: K80.20 Status: Acute (3) IFG (impaired fasting glucose) ICD Code: R73.01 Status: Acute (4) Hilar adenopathy ICD Code: R59.0 Status: Acute (5) Cholecystitis ICD Code: K81.9 Status: Acute Assessment and Plan 81-year-old female with Intractable abdominal pain Cholelithiasis Rule out cholecystitis -CT abdomen/pelvis noted and reviewed by me with finding of cholelithiasis -Check gallbladder ultrasound -Consult general surgery -Keep nothing by mouth, IV fluid hydration, pain management with analgesic/ Dilaudid when necessary IFG -Check hemoglobin A1c and treat accordingly Small bilateral hilar adenopathy: Finding on chest x-ray, will check chest CT and treat accordingly DVT prophylaxis: Bilateral SCDs GI prophylaxis: PPI Code Status Full code Discussed Condition With Patient, daughter, ED physician Physician Certification 2 Midnight Certification Type: Admission for Inpatient Services Order for Inpatient Services The services are ordered in accordance with Medicare regulations or non- Medicare payer requirements, as applicable. In the case of services not specified as inpatient-only, they are appropriately provided as inpatient services in accordance with the 2-midnight benchmark. Estimated LOS (days): 2 days is the estimated time the patient will need to remain in the hospital, assuming treatment plan goals are met and no additional complications. Post-Hospital Plan: Not yet determined Ho Funez MD Sep 20, 2016 08:46
[2016-09-20] MEDS ORDERED: SODIUM CHLOR 0.9% 1000 ML INJ 1,000 ML IV SCH (09:00)
--- NOTE | 2016-09-20 09:01 | RADRPT ---
EXAM DATE/TIME: 09/20/2016 08:03 [facility] COMPARISON: No previous studies available for comparison. INDICATIONS : Right upper quadrant pain. MEDICAL HISTORY : Gastroesophageal reflux disease. Hiatal hernia. Arthritis. SURGICAL HISTORY : Hysterectomy. Tonsillectomy. Bilateral knee replacement. ENCOUNTER: Initial ACUITY: 3 days PAIN SCORE: 2/10 LOCATION: Right upper quadrant MEASUREMENTS: LIVER: 14.4 cm length COMMON DUCT: 8 mm RIGHT KIDNEY: 10.1 x 3.9 x 4.2 cm FINDINGS: LIVER: Normal echotexture without focal lesion or ductal dilatation. COMMON DUCT: No intraluminal mass or stone visualized. GALLBLADDER: There is a large stone in the neck of the gallbladder. Gallbladder wall is thickened and there appear s to be a small volume of pericholecystic fluid PANCREAS: The visualized portions are within normal limits. RIGHT KIDNEY: No evidence of hydronephrosis, stone, or mass. CONCLUSION: Gallbladder appearance consistent with cholecystitis Alonso Danielle MD on September 20, 2016 at 8:57 Board Certified Radiologist. This report was verified electronically.
[2016-09-20] MEDS: SODIUM CHLORIDE 0.9% FLUSH 10 ML FLUSH IV FLUSH SCH ×2 (09:34→19:47)
[2016-09-20] MEDS: KETOROLAC TROMETHAMINE 30 MG/ML (IVP) VIAL IVP PRN ×2 (09:41→19:53)
[2016-09-20] MEDS ORDERED: oxyCODONE/ACETAMINOPHEN 5 MG/325 MG TAB PO PRN (10:15)
[2016-09-20] MEDS ORDERED: SODIUM CHLORIDE 0.9% FLUSH 10 ML FLUSH IV FLUSH SCH (10:15)
[2016-09-20] MEDS ORDERED: HYDROmorphone HCL PF 1 MG/ML VIAL IV PUSH PRN (10:15)
[2016-09-20] MEDS: ceFAZolin 2 GM PREMIX 50 ML IV SCH ×2 (10:33→19:00)
[2016-09-20] MEDS: PANTOPRAZOLE SODIUM 40 MG VIAL IV SCH (10:34)
[2016-09-20 10:44] VITALS: BP 126/63
[2016-09-20 11:40] VITALS: BP 121/69; PULSE 66; RESP 20; TEMP 97.8; O2SAT 96
[2016-09-20] MEDS ORDERED: PROPOFOL 200 MG/20 ML AMP IV ONE (12:00)
[2016-09-20] MEDS: metroNIDAZOLE 500 MG INJ 100 ML IV SCH ×2 (12:24→19:58)
[2016-09-20] MEDS: SODIUM CHLOR 0.9% 1000 ML INJ 1,000 ML IV SCH ×3 (12:24→21:06)
--- NOTE | 2016-09-20 14:15 | EKG ---
Date Performed: 09/20/2016 Time Performed: 04:33:37 PTAGE: 81 years EKG: Sinus rhythm LOW QRS VOLTAGE IN PRECORDIAL LEADS POSSIBLE ANTERIOR MYOCARDIAL INFARCTION Since previous tracing, no significant change noted ABNORMAL ECG PREVIOUS TRACING : 07/13/16 08.52.10 DOCTOR: Tina Duffy Interpretating Date/Time 09/20/2016 14:13:44
[2016-09-20] MEDS ORDERED: BUPIVACAINE/EPINEPHRINE 0.25% 50 ML VIAL ONE (16:21)
[2016-09-20] MEDS ORDERED: LIDOCAINE 1%/EPINEPHrine 1:100,000 SOLN 50 ML VIAL ONE (16:21)
--- NOTE | 2016-09-20 16:54 | HHI.PR ---
Immediate Post Op Note Procedure Date: Sep 20, 2016 Pre Op Diagnosis: acute cholelithiasis with cholecystitis Post Op Diagnosis: same Surgeon: Bird Nance MD Ampoule Filler(s): Marcella rome Procedure: lap lacy Findings: distended gallbladder Complications: none Specimen(s) removed: gallbladder Estimated blood loss: 5cc Anesthesia: General Drains: None Patient to: PACU Patient Condition: Good Bird Nance MD Sep 20, 2016 16:54
[2016-09-20] MEDS ORDERED: ceFAZolin INJ 1,000 MG VIAL IV ONE (17:01)
[2016-09-20] MEDS ORDERED: ceFAZolin INJ 1,000 MG VIAL ONE (17:11)
--- NOTE | 2016-09-20 17:13 | MB ---
cc: ZULAY GAINES MD DATE OF CONSULTATION 09/20/2016 REASON FOR CONSULTATION Right upper quadrant abdominal pain, acute cholecystitis, cholelithiasis. HISTORY OF PRESENT ILLNESS The patient is an 81-year-old female who presents with a history of reflux. She complains of epigastric and right-sided abdominal pain which has been going on for approximately two days. She states that the pain continues to get worse. It is 09/10 in intensity. It is constant. It is sharp. No significant alleviating factors. It is better with lying still. She states she has had a previous history of gallbladder issues for several years and has not sought treatment in a hospital for this.. She comes today with right upper quadrant abdominal pain and CT scan showing large cholelithiasis. Ultrasound confirming acute cholecystitis with pericholecystic fluid and cholelithiasis. Decision made to consult surgery for further evaluation. On my exam the patient is lying uncomfortably. She confirms the above history and states that the pain is pretty severe and significant. Her previous attacks have not quite been this severe. She came to the hospital because no improvement with her pain. She denies fevers, chills, nausea, vomiting, diarrhea or constipation. PAST MEDICAL HISTORY 1. Reflux. 2. Arthritis. PAST SURGICAL HISTORY 1. Hysterectomy. 2. Bilateral knee surgery. MEDICATIONS See EMR. ALLERGIES SULFA, ZITHROMAX AND MORPHINE. SOCIAL HISTORY Denies smoking, EtOH or IVDA. FAMILY HISTORY Mom with diabetes. REVIEW OF SYSTEMS GENERAL: The patient denies headache. HEENT: Denies eye pain. NECK: Denies swelling or pain. CARDIOVASCULAR: Denies chest pain or palpitations. RESPIRATORY: Denies cough or wheeze. ABDOMEN: Denies nausea and vomiting. Complained of abdominal pain. MUSCULOSKELETAL: Denies arthralgia, myalgias. NEUROLOGIC: Denies numbness or tingling. GENITOURINARY: Denies dysuria, hematuria. ENDOCRINE: Denies polyuria, polydipsia. PHYSICAL EXAMINATION GENERAL: The patient no acute distress. VITAL SIGNS: Temperature 97.9, pulse 72, respirations 16, blood pressure 167/72, pulse ox 97% on room air. HEENT: PERRLA, EOMI. Pupils equal, round and reactive. Head atraumatic, normocephalic. NECK: Supple. Trachea midline. CARDIOVASCULAR: Regular rate and rhythm, S1-S2. LUNGS: Clear to auscultation with bilateral expansion. ABDOMEN: Soft, positive tenderness to palpation right upper quadrant. No rebound. Minimal guarding. NEUROLOGIC: GCS of 15 a.m. alert and oriented times four. 5/5 motor all extremities. SKIN: No obvious masses or lesions. PSYCHIATRIC: Good insight and good judgment. LABORATORY AND DIAGNOSTIC DATA WBC 8.9, hemoglobin 12.8, hematocrit 37.9, platelets 338. Sodium 141, potassium 4.3, BUN 19, creatinine 0.85, glucose 134, calcium 9.1, AST 27, ALT 16, alk phos 82. Troponin 0.02. Lipase 123. IMAGING CT reviewed by myself. Small hiatal hernia and cholelithiasis. Absent uterus. Ultrasound, the gallbladder with distension, large gallstone common bile duct to about 8 mm. Gallbladder wall thickening, concern for pericholecystic fluid, small volume. ASSESSMENT The patient 81, right upper quadrant pain and cholelithiasis, cholecystitis. PLAN After full clinical, radiologic, laboratory workup the patient with the above named issues including acute cholecystitis with cholelithiasis. At this point, decision made for operative intervention including a laparoscopic cholecystectomy. This was discussed with the patient in detail who states understanding and agrees and would like to proceed with plan. Risks, benefits and alternatives discussed in detail. The patient will need IV antibiotics, n.p.o., pain control and again we will plan for operative intervention. MD ANUPAM Plata/ASHLEY /3:57 PM /4:56 PM
[2016-09-20] MEDS ORDERED: SUGAMMADEX SODIUM 200 MG/2 ML VIAL IV PUSH ONE ×2 (18:08)
[2016-09-20] MEDS ORDERED: fentaNYL CITRATE 250 MCG/5 ML AMP ONE (18:26)
[2016-09-20] MEDS ORDERED: DO NOT ADM ANY ANTICOAGULANT DRUGS PRN (19:00)
[2016-09-20 20:20] VITALS: BP 111/53; PULSE 68; RESP 18; TEMP 96.7; O2SAT 92
[2016-09-21 00:28] VITALS: BP 98/45; PULSE 62; RESP 16; TEMP 97.2; O2SAT 93
[2016-09-21] MEDS: ceFAZolin 2 GM PREMIX 50 ML IV SCH ×2 (02:00→10:21)
[2016-09-21 04:31] VITALS: BP 100/51; PULSE 62; RESP 16; TEMP 96.8; O2SAT 92
[2016-09-21] MEDS: SODIUM CHLOR 0.9% 1000 ML INJ 1,000 ML IV SCH ×2 (05:17→09:48)
[2016-09-21] MEDS: metroNIDAZOLE 500 MG INJ 100 ML IV SCH ×2 (05:17→12:53)
[2016-09-21 07:58] LABS: AUTOMATED NEUTROPHIL # 7.6 TH/MM3 (1.8-7.7); BASOPHIL % 0.2 % (0.0-2.0); HEMATOCRIT 32.2 % (35.0-46.0); HEMO FLAGS DIFF FINAL; LYMPH % 11.2 % (9.0-44.0); MEAN CELL VOLUME 81.3 FL (80.0-100.0); MEAN CORPUSCULAR HEMOGLOBIN 27.2 PG (27.0-34.0); MEAN CORPUSCULAR HGB CONC 33.4 % (32.0-36.0); MONO % 4.9 % (0.0-8.0); NEUT % 83.7 % (16.0-70.0); PLATELET COUNT 268 TH/MM3 (150-450); RED BLOOD COUNT 3.96 MIL/MM3 (4.00-5.30); RED CELL DISTRIBUTION WIDTH 16.2 % (11.6-17.2); WHITE BLOOD COUNT 9.1 TH/MM3 (4.0-11.0)
[2016-09-21 08:00] VITALS: BP 108/48; PULSE 67; RESP 18; TEMP 97.1; O2SAT 94
[2016-09-21] MEDS: SODIUM CHLORIDE 0.9% FLUSH 10 ML FLUSH IV FLUSH SCH (08:05)
[2016-09-21] MEDS: PANTOPRAZOLE SODIUM 40 MG VIAL IV SCH (08:05)
[2016-09-21 08:29] LABS: ALKALINE PHOSPHATASE 76 U/L (45-117); ALT (GPT) 54 U/L (10-53); ANION GAP 10 MEQ/L (5-15); AST (GOT) 84 U/L (15-37); BICARBONATE 22.8 MEQ/L (21.0-32.0); BLOOD UREA NITROGEN 17 MG/DL (7-18); CHLORIDE 109 MEQ/L (98-107); GLOMERULAR FILTRATION RATE 77 ML/MIN (>89); POTASSIUM 3.6 MEQ/L (3.5-5.1); SODIUM (NA) 142 MEQ/L (136-145); TOTAL BILIRUBIN ADULT 0.4 MG/DL (0.2-1.0)
--- NOTE | 2016-09-21 11:03 | HHI.PR ---
Subjective Remarks Follow-up cholecystitis 09/21/16-patient seen and examined; she is status post lap cholecystectomy and denies any significant abdominal pain. Tolerated by mouth without any complication or nausea and vomiting. Objective Vitals Vital Signs Date Time Temp Pulse Resp B/P Pulse Ox O2 Delivery O2 Flow Rate FiO2 09/21/16 08:00 97.1 67 18 108/48 94 09/21/16 04:31 96.8 62 16 100/51 92 09/21/16 00:28 97.2 62 16 98/45 93 09/20/16 20:20 96.7 68 18 111/53 92 09/20/16 19:45 67 14 97 Nasal Cannula 2 09/20/16 19:30 98.2 69 14 133/64 98 Nasal Cannula 2 09/20/16 19:15 70 12 140/66 97 Nasal Cannula 2 09/20/16 19:00 77 12 143/69 98 09/20/16 18:45 81 14 150/67 99 09/20/16 18:30 98.3 79 13 142/68 99 Nasal Cannula 2 09/20/16 18:23 98.3 115 12 153/69 99 Nasal Cannula 2 09/20/16 11:40 97.8 66 20 121/69 96 I/O 09/20/16 09/20/16 09/20/16 09/21/16 09/21/16 09/21/16 07:00 15:00 23:00 07:00 15:00 23:00 Intake Total 1362 ml 1176 ml Output Total 15 ml Balance 1347 ml 1176 ml Intake Oral 240 ml 240 ml IV Total 822 ml 936 ml Other 300 ml Output Estimated Blood Loss 15 ml # Voids 1 2 1 # Bowel Movements 0 0 Result Diagram: 09/21/1630 09/21/1630 Imaging Last Impressions Gall Bladder Ultrasound 09/20/16720 Signed Impressions: Service Date/Time: Tuesday, September 20, 2016 08:03 - CONCLUSION: Gallbladder appearance consistent with cholecystitis Alonso Danielle MD Chest X-Ray 09/20/16 0415 Signed Impressions: Service Date/Time: Tuesday, September 20, 2016 04:33 - CONCLUSION: 1. Cardiomegaly. 2. Retrocardiac density likely hiatal hernia. 3. Small bilateral hilar adenopathy. Consideration for CT chest may be warranted. 4. Hyperinflation without infiltrate. Ho Wei MD Abdomen/Pelvis CT 09/20/16 0415 Signed Impressions: Service Date/Time: Tuesday, September 20, 2016 05:20 - CONCLUSION: 1. Small to moderate-sized hiatal hernia. 2. Cholelithiasis. 3. Status post hysterectomy. 4. No acute inflammatory process. Ho Wei MD Objective Remarks GENERAL: NAD SKIN: Warm and dry. HEAD: Normocephalic. EYES: No scleral icterus. No injection or drainage. NECK: Supple, trachea midline. No JVD or lymphadenopathy. CARDIOVASCULAR: Regular rate and rhythm without murmurs, gallops, or rubs. RESPIRATORY: Breath sounds equal bilaterally. No accessory muscle use. GASTROINTESTINAL: Abdomen soft, non-tender, nondistended. inc c/d/i MUSCULOSKELETAL: No cyanosis, or edema. BACK: Nontender without obvious deformity. No CVA tenderness. Procedures Lap cholecystectomy 09/20/16 A/P Problem List: (1) Cholecystitis ICD Code: K81.9 Status: Acute (2) Intractable abdominal pain ICD Code: R10.9 Status: Acute (3) Cholelithiasis ICD Code: K80.20 Status: Acute (4) IFG (impaired fasting glucose) ICD Code: R73.01 Status: Acute (5) Hilar adenopathy ICD Code: R59.0 Status: Acute Assessment and Plan 81-year-old female with Cholecystitis Intractable abdominal pain Cholelithiasis -CT abdomen/pelvis noted and reviewed by me with finding of cholelithiasis -Gallbladder ultrasound positive for cholecystitis -s/p Lap cholecystectomy 09/20/16 and management per general surgery; continue with pain management with analgesic/Dilaudid when necessary IFG -Hemoglobin A1c pending and treat accordingly Small bilateral hilar adenopathy: Finding on chest x-ray, check chest CT today DVT prophylaxis: Bilateral SCDs GI prophylaxis: Ho Maya MD Sep 21, 2016 11:03
[2016-09-21] MEDS ORDERED: PERI8.6T PO (11:08)
[2016-09-21] MEDS ORDERED: HYDR-2376 PO (11:08)
--- NOTE | 2016-09-21 11:10 | HHI.DS ---
Discharge Summary Admission Date Sep 20, 2016 at 08:15 Discharge Date: Sep 21, 2016 Admitting Diagnosis Intractable abdominal pain, R/o Acute cholecystitis (1) Cholecystitis ICD Code: K81.9 (2) Intractable abdominal pain ICD Code: R10.9 (3) Cholelithiasis ICD Code: K80.20 (4) IFG (impaired fasting glucose) ICD Code: R73.01 (5) Hilar adenopathy ICD Code: R59.0 Procedures Lap cholecystectomy 09/20/16 Brief History - From Admission 81-year-old female with a history of GERD presented to the ED for evaluation of worsening midepigastric pain 3 days me described as sharp in character with radiation to her back associated with nausea without any emesis and rated 9 out of 10 in intensity. Patient denies any bladder or bowel dysfunctions. She reports prior history of "gallbladder attacks". CT abdomen in ED with finding of cholelithiasis however patient has no febrile episode or WBC. He denies any GI bleeding, hematuria, hemoptysis. She does not report any shortness of breath. CBC/BMP: 09/21/16 0630 09/21/16 0630 Significant Findings Laboratory Tests Test 09/20/16 09/21/16 04:20 06:30 Neutrophils (%) (Auto) 72.6 % 83.7 % (16.0-70.0) (16.0-70.0) Blood Urea Nitrogen 19 MG/DL (7-18) Estimat Glomerular Filtration 64 ML/MIN (>89) 77 ML/MIN (>89) Rate Random Glucose 134 MG/DL 128 MG/DL (74-106) (74-106) Troponin I LESS THAN 0.02 NG/ML (0.02-0.05) Red Blood Count 3.96 MIL/MM3 (4.00-5.30) Hemoglobin 10.8 GM/DL (11.6-15.3) Hematocrit 32.2 % (35.0-46.0) Chloride Level 109 MEQ/L (98-107) Calcium Level 7.8 MG/DL (8.5-10.1) Aspartate Amino Transf 84 U/L (15-37) (AST/SGOT) Alanine Aminotransferase 54 U/L (10-53) (ALT/SGPT) Albumin 2.6 GM/DL (3.4-5.0) PE at Discharge GENERAL: NAD SKIN: Warm and dry. HEAD: Normocephalic. EYES: No scleral icterus. No injection or drainage. NECK: Supple, trachea midline. No JVD or lymphadenopathy. CARDIOVASCULAR: Regular rate and rhythm without murmurs, gallops, or rubs. RESPIRATORY: Breath sounds equal bilaterally. No accessory muscle use. GASTROINTESTINAL: Abdomen soft, non-tender, nondistended. inc c/d/i MUSCULOSKELETAL: No cyanosis, or edema. BACK: Nontender without obvious deformity. No CVA tenderness. Hospital Course Cholecystitis Intractable abdominal pain Cholelithiasis -CT abdomen/pelvis noted and reviewed by me with finding of cholelithiasis -Gallbladder ultrasound positive for cholecystitis -s/p Lap cholecystectomy 09/20/16 and management per general surgery; continue with pain management with analgesic/Dilaudid when necessary IFG -Hemoglobin A1c pending and treat accordingly Small bilateral hilar adenopathy: Finding on chest x-ray, check chest CT today DVT prophylaxis: Bilateral SCDs GI prophylaxis: PPI Pt Condition on Discharge: Stable Discharge Disposition: Discharge Home Discharge Time: <= 30 minutes Discharge Instructions DIET: Follow Instructions for: Heart Healthy Diet Activities you can perform: Regular-No Restrictions Follow up Referrals: PCP Follow-up - 1 Week Surgical New Medications: Hydrocodone-Acetaminophen (Hydrocodone-Acetaminophen) 7.5-300 Mg Tab 1 TAB PO Q6H PRN PAIN #20 Ref 0 TAB Sennosides-Docusate Sodium ([place]-Colace) 8.6-50 Mg Tab 1 TAB PO BID PRN Constipation #20 Ref 0 TAB Ho Funez MD Sep 21, 2016 11:09
[2016-09-21 12:00] VITALS: BP 98/43; PULSE 88; RESP 18; TEMP 96.1; O2SAT 91
[2016-09-21] MEDS ORDERED: IOHEXOL 350 MG/ML 10 ML VIAL (for RAD DIAG) IV ONE (12:37)
--- NOTE | 2016-09-21 13:17 | RADRPT ---
EXAM DATE/TIME: 09/21/2016 12:13 [facility] COMPARISON: CHEST SINGLE AP, September 20, 2016, 4:33. INDICATIONS : Possible bilateral hilar adenopathy. IV CONTRAST: 50 cc Omnipaque 350 (iohexol) IV RADIATION DOSE: 5.35 CTDIvol (mGy) MEDICAL HISTORY : Hernia, hiatal. SURGICAL HISTORY : Cholecystectomy. Hysterectomy. ENCOUNTER: Initial ACUITY: 1 day PAIN SCALE: 0/10 LOCATION: chest TECHNIQUE: Volumetric scanning of the chest was performed. Using automated exposure control and adjustment of t he mA and/or kV according to patient size, radiation dose was kept as low as reasonably achievable to obtain optimal diagnostic quality images. FINDINGS: There is linear atelectasis at the left greater than right lung base. There is a large hiatal hernia identified, and free intraperitoneal air is present with air also seen in the subcutaneous tissues ri ght upper quadrant, and an air collection in the expected location of the gallbladder fossa with surg ical clips now seen in the gallbladder fossa consistent with interval cholecystectomy. There is right paratracheal adenopathy measuring up to 15 cm in short axis dimension. No hilar adenopathy. Coronary artery calcification is noted. No pleural effusions. Osseous structures are intact with degenerative changes of the spine. CONCLUSION: Subcutaneous emphysema and free air identified in this patient who status post cholecystectomy. Large hiatal hernia. Right paratracheal prominence lymph node otherwise unremarkable appearance of the [address] with minimal basilar atelectasis. Lamine Messer MD on September 21, 2016 at 13:13 Board Certified Radiologist. This report was verified electronically.
[2016-09-21 16:41] LABS: HEMOGLOBIN A1b 1.9 %; HEMOGLOBIN Ao 84.3 %; HEMOGLOBIN LA1C 2.3 %; HEMOGLOBIN P3 5.6 %
--- NOTE | 2016-09-21 17:28 | HHI.PR ---
Subjective Subjective Notes Out of bed ambulating in room Hungry Feels much better today Objective Vitals/I&O Vital Signs Date Time Temp Pulse Resp B/P Pulse Ox O2 Delivery O2 Flow Rate FiO2 09/21/16 12:00 96.1 88 18 98/43 91 09/20/16 19:45 Nasal Cannula 2 Labs Laboratory Tests Test 09/21/16 06:30 White Blood Count 9.1 Red Blood Count 3.96 Hemoglobin 10.8 Hematocrit 32.2 Mean Corpuscular Volume 81.3 Mean Corpuscular Hemoglobin 27.2 Mean Corpuscular Hemoglobin 33.4 Concent Red Cell Distribution Width 16.2 Platelet Count 268 Mean Platelet Volume 7.8 Neutrophils (%) (Auto) 83.7 Lymphocytes (%) (Auto) 11.2 Monocytes (%) (Auto) 4.9 Eosinophils (%) (Auto) 0.0 Basophils (%) (Auto) 0.2 Neutrophils # (Auto) 7.6 Lymphocytes # (Auto) 1.0 Monocytes # (Auto) 0.4 Eosinophils # (Auto) 0.0 Basophils # (Auto) 0.0 CBC Comment DIFF FINAL Differential Comment Sodium Level 142 Potassium Level 3.6 Chloride Level 109 Carbon Dioxide Level 22.8 Anion Gap 10 Blood Urea Nitrogen 17 Creatinine 0.73 Estimat Glomerular Filtration 77 Rate Random Glucose 128 Calcium Level 7.8 Total Bilirubin 0.4 Aspartate Amino Transf 84 (AST/SGOT) Alanine Aminotransferase 54 (ALT/SGPT) Alkaline Phosphatase 76 Total Protein 6.5 Albumin 2.6 Date/Time Procedure Status Source Growth 09/20/16 18:00 Gram Stain - Final Resulted Fluid Bile Fluid 09/20/16 18:00 Body Fluid Culture - Preliminary Resulted Fluid Bile Fluid 09/20/16 18:00 Fungal Smear - Final Resulted Fluid Bile Fluid NO FUNGAL ELEMENTS SEEN. 09/20/16 18:00 Fungal Culture Resulted Fluid Bile Fluid Pending 09/20/16 18:00 Acid Fast Stain Received Fluid Bile Fluid Pending 09/20/16 18:00 Mycobacterial Culture Received Fluid Bile Fluid Pending Cardiovascular: Regular Lungs: Clear Abdomen: Other (lap sites c/d/i; no tenderness with palpation ) Extremities: No edema A/P Assessment and Plan 81 year old female POD1 lap lacy -Advance to regular diet -Okay to shower tomorrow---pat incisions dry -Pain control -Follow up with Dr. Nance in about 1 week - clear for DC Attending Statement patient seen at bedside no acute issues ok to d/c home Attestation The exam, history, and the medical decision-making described in the above note were completed with the assistance of the mid-level provider. I reviewed and agree with the findings presented. I attest that I had a [id number] encounter with the patient on the same day, and personally performed and documented my assessment and findings in the medical record. Mabel Ugalde Sep 21, 2016 17:28 Bird Nance MD Sep 27, 2016 22:10
--- NOTE | 2016-09-21 21:56 | MP ---
cc: ZULAY NANCE MD DATE OF SURGERY 09/20/16 PREOPERATIVE DIAGNOSIS Acute cholecystitis with cholelithiasis. POSTOPERATIVE DIAGNOSIS Acute cholecystitis with cholelithiasis. PROCEDURE PERFORMED Laparoscopic cholecystectomy SURGEON Dr. Tesha Nance SENIOR C SOFTWARE DEVELOPER Noble Rosen ANESTHESIA GETA IV FLUIDS 300 mL ESTIMATED BLOOD LOSS 15 mL. DRAINS None COMPLICATIONS None. WOUND CLASSIFICATION Clean contaminated FINDINGS Distended gallbladder with multiple large gallstones. Gallstone in infundibulum. SPECIMEN Gallbladder INDICATION The patient is an 81 year old female who presents with a three days onset of right upper quadrant abdominal pain. She states the pain started, continued to get worse and was not relieved. She came to the emergency department with CT scan and Doppler ultrasound confirming cholelithiasis, cholecystitis and pericholecystic fluid. Therefore, decision was made for operative intervention including laparoscopic cholecystectomy. PROCEDURE IN DETAIL The patient was taken to the operating suite, placed in supine position. She was prepped and draped in usual sterile fashion after induction of general endotracheal anesthesia. Brief time-out was done stating correct patient, procedure and surgical site and all in agreement with this. Attention first directed to the umbilicus. Stab kiley incision made. Veress needle used intraabdominally confirming saline drop test. Abdomen insufflated 15 mmHg pneumoperitoneum. The Veress needle switched for a 5-mm trocar. The 5-mm scope placed; on cursory inspection no evidence of injury. Three other trocars were placed, one epigastric 12 mm followed by two 5 subcostal mid axillary and anterior axillary line. The patient was placed in reverse Trendelenburg and planed to the left. The gallbladder fundus was grasped noted to be extremely distended and somewhat tense. A endo-needle was used to decompress the gallbladder with approximately 50 mL of bile aspirated. The gallbladder fundus grasped and retracted cephalad. Several adhesions taken down from the gallbladder. This was done with electro Bovie cautery and [place] graspers. The infundibulum was grasped and the cystic duct and cystic artery were identified noted to be the only structures going to the gallbladder. Two clips placed proximally on the cystic artery and one distally and this was used to clip the cystic artery. The cystic duct was then dissected out. Three clips were placed proximal and one distal on the cystic duct and this was transected with Endo nomi. Again gallbladder noted to be edematous with a thickened plane. Hook electro Bovie cautery was used to remove the gallbladder from the gallbladder fossa. Gallbladder was then placed in EndoCatch bag and removed from the epigastric 12 mm port. Irrigation used and suctioned. Electro Bovie cautery down to the gallbladder fossa with good hemostasis. The patient was then flattened out and pneumoperitoneum removed. Trocars were removed. A [id number] suture was placed at the epigastric port. 4-0 Monocryl was used for subcuticular sutures followed by sterile dressings and Mastisol and Steri-Strips. The patient tolerated procedure well. No intraoperative complication. The patient was extubated, taken to the PACU. MD ANUPAM Plata/ /8:27 PM /9:47 PM KAYLEY
== END 2016-09-21 18:18 | disposition home or self-care (01) | DRG 419 ==
LOC: NEPE 03:42 → NEDA 07:25 → OBSVTOIN 08:15 → NEPGCP 11:15 → N06B 17:46 → N06A 20:22
PROVIDERS: ADMIT Hospitalist; ATTEND Hospitalist
PROC: 0FT44ZZ Resection of Gallbladder, Percutaneous Endoscopic Approach (ICD-10-PCS; principal; 2016-09-20 16:39)
DX: K80.00 Calculus of gallbladder with acute cholecystitis without obstruction (principal); K21.9 Gastro-esophageal reflux disease without esophagitis; R73.01 Impaired fasting glucose; R59.0 Localized enlarged lymph nodes
CPT/HCPCS: 71010; 71260; 74177; 76705; 80053; 81001; 82550; 83036; 83605; 83690; 83735; 83880; 84484; 85025; 85610; 85730; 87015; 87070; 87102; 87116; 87205; 87206; 88304; 93005; 96361; 96374; 96375; C9113; J0690; J1170; J1885; J2405; J2543; J3010; J7030; J7040; Q9967